=== PATIENT | male | born 1995 | race Asian ===

== ENCOUNTER 2022-01-26 12:08 | Emergency (ER) | payer BC ==
[~2022-01-26] VITALS: Ht 167.6 cm; Wt 59.0 kg
[2022-01-26] MEDS: LEVETIRACETAM (500MG) 1,000 MG in IV NS 0.9% 100 ML IV SCH (12:27)
--- NOTE | 2022-01-26 12:37 | NUR ---
CALLED RADIOLOGY FOR XRAY, SPOKE TO EFFIE AND SAID THAT PT IS STILL IN PRE-ER SO THEY CAN'T DO IT, CALLED ADMITTING TO FIX IT
--- NOTE | 2022-01-26 12:46 | NUR ---
X-RAY TECH AT THE BEDSIDE
[2022-01-26] MEDS ORDERED: FENTANYL PF 100MCG/2ML AMPUL ONE (13:01)
[2022-01-26] MEDS ORDERED: PROPOFOL 20 ML IV ONE (13:02)
[2022-01-26] MEDS: FENTANYL PF 100MCG/2ML AMPUL IV ONE (13:02)
--- NOTE | 2022-01-26 13:08 | NUR ---
DR CALDWELL PERFORMED CLOSED REDUCTION OF LEFT SHOULDER DISLOCATIOM UNDER MODERATE SEDATION WITH NURSE AND RT. 150MG TOTAL OF PROPOFOL GIVEN (1308 50MG, 1309 25MG, 1310 25MG, 1311 25MG, 1313 25MG) CALLED [employer] FOR POST REDUCTION XRAY. PATIENT AWAKE, BREATHING EVEN AND NON LABORED.
[2022-01-26] MEDS: PROPOFOL 200 MG/20 ML VIAL IV ONE (13:09)
--- NOTE | 2022-01-26 13:29 | NUR ---
per dr ramos, patient can go home in 1hr
[2022-01-26] MEDS ORDERED: IBUP-1957 PO (13:31)
[2022-01-26] MEDS ORDERED: LEVE500T9 PO (13:31)
--- NOTE | 2022-01-26 14:36 | NUR ---
IV removed. Catheter intact and site benign. Pressure and 4x4 applied to site. No bleeding noted.Patient discharged to home in stable condition. Written and verbal after care instructions given. Patient verbalizes understanding of instruction.
[2022-01-26 14:41] VITALS: BP 136/78
== END 2022-01-26 14:42 | disposition home or self-care (01) ==
LOC: ER 12:10
DX: S42.92XA Fracture of left shoulder girdle, part unspecified, initial encounter for closed fracture (principal); G40.909 Epilepsy, unspecified, not intractable, without status epilepticus; Z79.899 Other long term (current) drug therapy; X58.XXXA Exposure to other specified factors, initial encounter; Y93.89 Activity, other specified; Y92.89 Other specified places as the place of occurrence of the external cause; Y99.8 Other external cause status
CPT/HCPCS: 99285; 23650; 96365; 99152; 73030 ×2; J2704; J3010; J7030; J7040; J1953; G0500